=== PATIENT | male | born 1995 | race Caucasian/White ===

== ENCOUNTER 2019-12-08 19:34 | Emergency (ER) | payer OTHER ==
[~2019-12-08] VITALS: Ht 167.6 cm; Wt 108.9 kg
[2019-12-08 19:41] VITALS: BP 134/85; Ht 167.6 cm; Wt 108.9 kg
== END 2019-12-08 20:35 | disposition home or self-care (01) ==
LOC: ED 19:34
DX: J45.909 Unspecified asthma, uncomplicated (principal); J32.9 Chronic sinusitis, unspecified

== ENCOUNTER 2020-04-21 11:06 | Emergency (ER) | payer OTHER ==
[~2020-04-21] VITALS: Ht 170.2 cm; Wt 106.6 kg
[2020-04-21 11:11] VITALS: Ht 170.2 cm; Wt 106.6 kg
[2020-04-21 12:36] VITALS: BP 126/73
== END 2020-04-21 12:36 | disposition home or self-care (01) ==
LOC: ED 11:06
DX: H61.22 Impacted cerumen, left ear (principal); J45.909 Unspecified asthma, uncomplicated
CPT/HCPCS: J7030